=== PATIENT | female | born 1995 ===

== ENCOUNTER 2016-10-05 06:14 | Inpatient (IN) | payer OTHER ==
[2016-09-28 10:21] VITALS: BMI 49.9
[2016-10-05] MEDS ORDERED: Dexamethasone 4 mg/1 ml IV ONE (06:45)
[2016-10-05] MEDS ORDERED: Lactated Ringer's 1,000 ML IV SCH ×2 (06:45→09:15)
[2016-10-05] MEDS ORDERED: Lactated Ringer's 1,000 ML IV ONE ×3 (06:45→09:02)
[2016-10-05] MEDS ORDERED: ceFAZolin IV 2 gm in Dextrose 1 GM/50 ML BAG IVPB ONE (07:44)
[2016-10-05] MEDS ORDERED: Bupivacaine HCl 0.25% PF (10 ml) Inj ONE ×2 (07:44)
[2016-10-05] MEDS ORDERED: Propofol 10 mg/ml Inj (20 ML) ONE ×2 (07:49→08:47)
[2016-10-05] MEDS ORDERED: Midazolam 2 MG/2 ML VIAL ONE (07:50)
[2016-10-05] MEDS ORDERED: Succinylcholine Chloride 20 mg/ml Syr (5 ml) IV ONE (08:27)
[2016-10-05] MEDS ORDERED: Rocuronium 10 mg/ml (10 ml) ONE (08:27)
[2016-10-05] MEDS ORDERED: ceFAZolin IV 1 gm in Dextrose 1 GM/50 ML BAG IVPB ONE (08:44)
[2016-10-05] MEDS: HYDROmorphone 0.5 mg/0.5 ml ISec IVP PRN ×3 (09:07→10:55)
[2016-10-05] MEDS ORDERED: HYDROmorphone 0.5 mg/0.5 ml ISec ONE (09:07)
--- NOTE | 2016-10-05 09:09 | PCM.SURG1 ---
Surgeon's Initial Post Op Note - Surgeon's Notes Surgeon: Joceline Wax Coating Machine Tender: Frannie Type of Anesthesia: General Endo Anesthesia Administered By: Dr. Woods Pre-Operative Diagnosis: Morbid Obesity Operative Findings: No Hiatal hernia, negative leak test Post-Operative Diagnosis: Morbid Obesity Operation Performed: Laparoscopic sleeve gastrectomy, upper endoscopy Specimen/Specimens Removed: Portion of stomach Estimated Blood Loss: EBL {In ML}: 5 Blood Products Given: N/A Post-Op Condition: Good Date of Surgery/Procedure: 10/05/16 Time of Surgery/Procedure: 07:45
--- NOTE | 2016-10-05 12:06 | OP ---
PROCEDURE DATE: 10/05/2016 PREOPERATIVE DIAGNOSIS: Morbid obesity. POSTOPERATIVE DIAGNOSIS: Morbid obesity. PROCEDURE: Laparoscopic sleeve gastrectomy, upper endoscopy TAP block. SURGEON: Cat Car MD KEYLINER: Milton Kathleen MD ANESTHESIA: General. ANESTHESIOLOGIST: Dr. Woods. BLOOD LOSS: Minimal. SPECIMEN: Portion of stomach. There were no complications. INDICATION: This is a 21-year-old female with morbid obesity who meets the NIH criteria for bariatric surgery. PROCEDURE: The patient was brought to the operating room and placed in supine position on the operating room table. General endotracheal anesthesia was induced by the anesthesia team. A Paniagua catheter was inserted to decompress the bladder. Precautions were taken to pad the patient well using gel padding in the back, feet, and arms to prevent postoperative pain. The patient was prepped and draped in the usual sterile fashion. The assistant in nursing placed a Veress needle in the left upper quadrant below the costal margin to establish pneumoperitoneum to 15 mmHg. A 12-mm Optiview port along with 0-degree laparoscope was inserted in the midline, superior to the umbilicus with no evidence of injury upon entering. Next, the scope was changed to 45 degree and the Veress needle was removed under vision. Under laparoscopic guidance, a transversus abdominis plane block was performed by injecting 30 cc of 0.25% Marcaine into multiple sites along the left flank. The solution was injected into the plane between the internal oblique and the transversus abdominis muscles to aid in postoperative analgesia. This procedure was repeated on the right flank for maximum efficacy. A 15-mm trocar was placed in the right midclavicular line above the umbilicus. Additionally, two 5-mm trocars were placed in the right and left flank below the costal margin. All trocars were placed under direct vision. A liver retractor (Vamshi) was inserted through a separate stab incision 1 cm below the xiphoid process and was attached to a retracting device secured to the left side of the table. The entire procedure was performed laparoscopically. The primary surgeon operated from the right side of the patient and the assistant in nursing operated from the left side of the patient. The lesser sac was entered by first dividing the gastrocolic ligament along the midpoint of the greater curvature of the stomach with a harmonic scalpel. The dissection was performed close to the stomach to avoid the gastroepiploic artery. Dissection proceeded proximally toward the angle of His. The assistant in nursing dissected out and ligated the short gastric arteries with the harmonic scalpel. Care was taken to avoid injury to the spleen. We then returned to the point, where the dissection began more distally on the greater curvature. The assistant in nursing used the Harmonic scalpel and continued distally along the greater curvature to approximately 4 to 6 cm from the pylorus. At this point, a 40-Welsh bougie was inserted by the anesthesia team and was aligned medially and passed under vision to the region of the pylorus. The assistant in nursing grasped the greater curvature of the stomach with a loop grasper and retracted laterally. The sleeve gastrectomy was performed using sequential firings of a 60-mm Endo MEDINA stapler ([employer]). For the initial two firings, a green load was used where the stomach tissue was thicker. The remaining firings were done using gold and blue loads. Care was taken to avoid narrowing the distal aspect of the sleeve. The anterior and posterior vagus nerves were identified and preserved throughout their course. Sequential firings of the stapler continued up to the angle of His. Care was taken to ensure equal tension along the entire staple line to prevent kinking of the sleeve. The entire staple line was reinforced with SeamGuard buttressing material to help reduce the chance of bleeding or a leak. An upper endoscopy was performed (to be dictated separately) in order to evaluate the gastric mucosa as well as perform a leak test. The distal stomach was occluded and the upper abdomen was filled with saline solution in order to submerge the entire staple line. Air was insufflated and no bubbles were visualized. The saline was suctioned off and the scope removed. The resected stomach was placed in a large EndoCatch bag for later removal. The area was carefully inspected and hemostasis ensured. The fascia of the 15-mm port site was closed using 0 Vicryl interrupted suture on the Endoclose device. The liver retractor and all ports were removed under vision and pneumoperitoneum evacuated. The specimen was removed through the 15-mm port site and was sent off the field. The skin on all port sites was closed with 4-0 Monocryl subcuticular sutures followed by Dermabond for dressing. All sponge and instruments counts were correct at the end of the procedure. The patient tolerated the procedure well, was extubated in the operating room and was transferred to the recovery room in stable condition. Cat Car MD
[2016-10-05] MEDS: HYDROmorphone 1 mg/ml ISec IVP PRN ×2 (16:20→21:40)
[2016-10-05] MEDS: Lactated Ringer's 1,000 ML IV SCH (22:36)
[2016-10-06] MEDS: Lactated Ringer's 1,000 ML IV SCH (00:25)
[2016-10-06] MEDS: HYDROmorphone 1 mg/ml ISec IVP PRN (01:27)
[2016-10-06] MEDS ORDERED: Barium Sulfate for Susp 96% w/w 176g Bottle PR ONE (07:33)
[2016-10-06] MEDS ORDERED: Iohexol 240 200 ML IJ ONE (07:33)
[2016-10-06 07:38] LABS: BASO % 0.1 % (0.0-2.0); HEMOGLOBIN 11.3 g/dL (11.0-16.0); LYMPH # 1.8 K/uL (1.0-4.3); LYMPH % 13.6 % (20.0-40.0); MEAN CELL VOLUME 83.5 fL (81.0-99.0); MEAN CORPUSCULAR HEMOGLOBIN 26.4 pg (27.0-31.0); MEAN CORPUSCULAR HGB CONC 31.7 g/dL (33.0-37.0); MEAN PLATELET VOLUME 8.4 fL (7.2-11.7); MONO # 0.8 K/uL (0.0-0.8); MONO % 5.7 % (0.0-10.0); NEUT # 10.6 K/uL (1.8-7.0); NEUT % 80.6 % (50.0-75.0); RBC 4.26 Mil/uL (3.80-5.20); RED CELL DISTRIBUTION WIDTH 15.7 % (11.5-14.5); WHITE BLOOD COUNT 13.2 K/uL (4.8-10.8)
[2016-10-06 08:19] LABS: GFR AFRICAN-AMERICAN > 60; GFR NON-AFRICAN AMERICAN > 60
[2016-10-06 08:20] LABS: BLOOD UREA NITROGEN 8 mg/dL (7-17); CALCIUM 8.8 mg/dl (8.6-10.4)
[2016-10-06 08:41] VITALS: BP 122/71; RESP 18; TEMP 97.5; O2SAT 97
--- NOTE | 2016-10-06 09:29 | RAD ---
PROCEDURE: MODIFIED UPPER GI EXAMINATION: HISTORY: post op sleeve, rule out leak COMPARISON: None TECHNIQUE: Following oral administration of both Gastrografin followed by still density barium, limited upper GI examination was performed without for potential gastric leak status post gastric sleeve surgery 10/05/2016. FINDINGS: The esophagogastric junction appears unremarkable. A diminished gastric lumen is identified in both the Gastrografin and sequencing barium studies but there was no extravasation of contrast material identified throughout the stomach with the duodenum well opacified as well. There is adequate transit of oral contrast through the gastroesophageal junction and stomach and subsequently into the duodenum. No obstruction appreciated grossly appreciated. IMPRESSION: No evidence contrast extravasation of the stomach status post gastric sleeve surgery. No obstruction to the flow of oral contrast material.
[2016-10-06] MEDS ORDERED: Enoxaparin 40 mg Syringe SC SCH (10:00)
--- NOTE | 2016-10-06 10:01 | CP.PCM.CON ---
History of Present Illness - History of Present Illness History of Present Illness: Patient doing well. No complaints. Denies nausea or pain. Just started sipping water without difficulty. Review of Systems - Constitutional Constitutional: absent: Fever, Chills Past Patient History - Past Medical History & Family History Past Medical History?: Yes - Past Social History Smoking Status: Never Smoked - CARDIAC Hx Cardiac Disorders: No - PULMONARY Hx Respiratory Disorders: No - NEUROLOGICAL Hx Neurological Disorder: No - HEENT Hx HEENT Problems: No - RENAL Hx Chronic Kidney Disease: No - ENDOCRINE/METABOLIC Hx Endocrine Disorders: No - HEMATOLOGICAL/ONCOLOGICAL Hx Blood Disorders: No - INTEGUMENTARY Hx Dermatological Problems: No - MUSCULOSKELETAL/RHEUMATOLOGICAL Hx Musculoskeletal Disorders: No Hx Falls: No Hx Fractures: Yes - GASTROINTESTINAL Hx Gastrointestinal Disorders: No - GENITOURINARY/GYNECOLOGICAL Hx Genitourinary Disorders: No - PSYCHIATRIC Hx Psychophysiologic Disorder: No Hx Substance Use: No - SURGICAL HISTORY Hx Surgeries: No - ANESTHESIA Hx Anesthesia: No Hx Anesthesia Reactions: No Hx Malignant Hyperthermia: No Has any member of the family had a problem w/ anesthesia?: No Meds Allergies/Adverse Reactions: Allergies Allergy/AdvReac Type Severity Reaction Status Date / Time No Known Allergies Allergy Verified 09/28/16 10:21 - Medications Medications: Current Medications Enoxaparin Sodium (Lovenox) 40 mg SC DAILY [facility] Last Admin: 10/06/16 09:08 Dose: 40 mg Famotidine (Pepcid) 20 mg IVP Q12 [facility] Last Admin: 10/06/16 09:08 Dose: 20 mg Hydromorphone HCl (Dilaudid) 1 mg IVP Q3H PRN PRN Reason: Pain, severe (8-10) Last Admin: 10/06/16 01:27 Dose: 1 mg Lactated Ringer's (Lactated Ringer's) 1,000 mls @ 150 mls/hr IV .Q6H40M [facility] Last Admin: 10/05/16 16:00 Dose: 200 mls Lactated Ringer's (Lactated Ringer's) 1,000 mls @ 150 mls/hr IV .Q6H40M [facility] Last Admin: 10/06/16 00:25 Dose: 150 mls/hr Ketorolac Tromethamine (Toradol) 30 mg IVP Q6 [facility] Stop: 10/07/16 06:01 Last Admin: 10/06/16 06:38 Dose: 30 mg Ondansetron HCl (Zofran Inj) 4 mg IVP Q6H PRN PRN Reason: Nausea/Vomiting Physical Exam - Constitutional Appears: Non-toxic, No Acute Distress - ENT Exam ENT Exam: Normal Exam - GI/Abdominal Exam GI & Abdominal Exam: Normal Bowel Sounds, Soft. absent: Tenderness - Extremities Exam Extremities exam: Positive for: normal inspection. Negative for: calf tenderness Results - Vital Signs Recent Vital Signs: Last Vital Signs Temp 97.5 F L 10/06/16 07:50 Pulse 75 10/06/16 07:50 Resp 18 10/06/16 07:50 BP 122/71 10/06/16 07:50 Pulse Ox 97 10/06/16 07:50 - Labs Result Diagrams: 10/06/16 07:03 10/06/16 07:03 Labs: Laboratory Results - last 24 hr 10/06/16 10/06/16 07:03 07:03 WBC 13.2 H RBC 4.26 Hgb 11.3 Hct 35.6 MCV 83.5 MCH 26.4 L MCHC 31.7 L RDW 15.7 H Plt Count 335 MPV 8.4 Neut % (Auto) 80.6 H Lymph % (Auto) 13.6 L Charlton % (Auto) 5.7 Eos % (Auto) 0.0 Baso % (Auto) 0.1 Neut # 10.6 H Lymph # 1.8 Charlton # 0.8 Eos # 0.0 Baso # 0.0 Sodium 139 Potassium 4.0 Chloride 100 Carbon Dioxide 28 Anion Gap 15 BUN 8 Creatinine 0.7 Est GFR ( Amer) > 60 Est GFR (Non-Af Amer) > 60 Random Glucose 87 Calcium 8.8 - Impressions Impression: UGI reviewed with no evidence of leak or obstruction Assessment/Plan (1) S/P laparoscopic sleeve gastrectomy Assessment and plan: Bariatric clear liquid diet Discontinue telemetry Encourage ambulation, incentive spirometry DVT prophylaxis D/c planning for today if tolerates liquids Current Visit: Yes Status: Acute
[2016-10-06 11:56] VITALS: PULSE 68
== END 2016-10-06 14:29 | disposition home or self-care (01) | DRG 621 ==
LOC: C.9S 06:14 → C.6T 17:09
PROVIDERS: ADMIT Surgery; ATTEND Surgery
PROC: 0DJ08ZZ Inspection of Upper Intestinal Tract, Via Natural or Artificial Opening Endoscopic (ICD-10-PCS; 2016-10-05)
PROC: 0DB64Z3 Excision of Stomach, Percutaneous Endoscopic Approach, Vertical (ICD-10-PCS; principal; 2016-10-05 07:45)
DX: E66.01 Morbid (severe) obesity due to excess calories (principal); Z68.42 Body mass index [BMI] 45.0-49.9, adult

== ENCOUNTER 2018-03-05 22:52 | Emergency (ER) | payer OTHER ==
[2018-03-05 22:52] VITALS: BMI 49.9
[2018-03-05 23:02] VITALS: BP 100/62; PULSE 80; TEMP 98.1; O2SAT 99
--- NOTE | 2018-03-05 23:50 | C.PDOC ---
History Of Present Illness 22 year old female presents to the ER with a complaint of swelling and redness to the right ring finger. Patient states she woke up today and noticed it was red and swollen. Denies fever, trauma, new jewelry, or new skin products. Patient states she had a few drinks last night but was sober enough and does not recall hitting it. Pt de nies weakness or numbness Time Seen by Provider: 03/05/18 23:03 Chief Complaint (Nursing): Finger,Hand,&Wrist History Per: Patient History/Exam Limitations: no limitations Onset/Duration Of Symptoms: Hrs Current Symptoms Are (Timing): Still Present Recent travel outside of the [place]: No Past Medical History Reviewed: Historical Data, Nursing Documentation, Vital Signs Vital Signs: Last Vital Signs Temp 98.1 F 03/05/18 22:59 Pulse 80 03/05/18 22:59 Resp 14 03/05/18 22:59 BP 100/62 03/05/18 22:59 Pulse Ox 99 03/05/18 22:59 - Medical History PMH: Fractures Denies: Chronic Kidney Disease - [facility] Procedures EXCISION OF STOMACH, PERCUTANEOUS ENDOSCOPIC APPROACH, VERT (10/05/16) INSPECTION OF UPPER INTESTINAL TRACT, ENDO (10/05/16) Family History: States: Unknown Family Hx - Social History Hx Alcohol Use: No Hx Substance Use: No Review Of Systems Constitutional: Negative for: Fever Musculoskeletal: Positive for: Other (Right ring erythema and swelling) Neurological: Negative for: Weakness, Numbness Physical Exam - Physical Exam Appears: Non-toxic Skin: Warm, Dry Head: Atraumatic, Normacephalic Eye(s): bilateral: Normal Inspection Extremity: Capillary Refill (<2 seconds), Other ( Swelling and erythema to right 5th finger extending to the base of the MCP with warmth. No lesions or pustules.) Pulses: Left Radial: Normal, Right Radial: Normal Neurological/Psych: Oriented x3, Normal Speech, Normal Motor, Normal Sensation ED Course And Treatment O2 Sat by Pulse Oximetry: 99 (Room air) Pulse Ox Interpretation: Normal - Other Rad Rt hand xr X-Ray: Interpreted by Me, Viewed By Me Interpretation: No fracture or dislocation Progress Note: Right hand x-ray ordered, results were negative. Patient with atraumatic erythema and swelling of right 4th finger, possible cellulitis vs contact allergic reaction, will treat with keflex benadryl and prednisone, explained return precautions to patient and advised to follow up with PMD. Disposition - Disposition Referrals: [facility] at [facility] [Outside] Disposition: HOME/ ROUTINE Disposition Time: 23:46 Condition: STABLE Additional Instructions: Take medications as directed Follow up with PMD or in clinic Return to ER if increasing selling , severe pain, numbness, weakness, discoloration or worse Prescriptions: Cephalexin [Keflex] 500 mg PO QID #20 capsule DiphenhydrAMINE [Benadryl] 50 mg PO BID #14 cap predniSONE [Prednisone] 40 mg PO DAILY #6 tab Instructions: Cellulitis (Skin Infection), Adult (DC) Forms: [employer] (Faroese), Gen Discharge Inst Samoan - Clinical Impression Clinical Impression: Cellulitis of finger of right hand - PA / SAFETY ASSOCIATE / Resident Statement MD/DO has reviewed & agrees with the documentation as recorded. - Scribe Statement The provider has reviewed the documentation as recorded by the Scribe Isma Walker All medical record entries made by the Goldyibhelen were at my direction and personally dictated by me. I have reviewed the chart and agree that the record accurately reflects my personal performance of the history, physical exam, medical decision making, and the department course for this patient. I have also personally directed, reviewed, and agree with the discharge instructions and disposition.
[2018-03-06 00:11] VITALS: RESP 20
--- NOTE | 2018-03-06 10:40 | RAD ---
Date of service: 03/05/2018 PROCEDURE: Right ring finger radiographs. HISTORY: swelling and redness to right 4th finger COMPARISON: None. TECHNIQUE: AP radiograph of the right hand, as well as spot oblique and lateral images of ring finger were obtained. FINDINGS: RIGHT RING FINGER: Normal right ring finger, without fracture or focal lesion. Remainder of the right hand (as seen on the AP view) grossly unremarkable. JOINTS: Normal. SOFT TISSUES: Normal. OTHER FINDINGS: None. IMPRESSION: Normal right ring finger radiographs.
== END 2018-03-06 00:11 | disposition home or self-care (01) ==
LOC: C.ER 22:52
DX: L03.011 Cellulitis of right finger (principal)